=== PATIENT | female | born 1985 | race Caucasian/White ===

== ENCOUNTER 2018-10-10 19:05 | Emergency (ER) | payer OTHER ==
[~2018-10-10] VITALS: Ht 157.5 cm; Wt 50.8 kg
[2018-10-10 20:01] VITALS: BP 139/51
== END 2018-10-10 20:27 | disposition home or self-care (01) ==
LOC: ER 19:07
DX: J34.89 Other specified disorders of nose and nasal sinuses (principal); K21.9 Gastro-esophageal reflux disease without esophagitis
CPT/HCPCS: 99281; A4606; J7030; Z7502

== ENCOUNTER 2019-09-20 20:59 | Emergency (ER) | payer OTHER ==
[~2019-09-20] VITALS: Ht 157.5 cm; Wt 49.9 kg
[2019-09-20 20:59] VITALS: BP 119/71
== END 2019-09-20 21:34 | disposition home or self-care (01) ==
LOC: ER 20:59
DX: G89.18 Other acute postprocedural pain (principal); K21.9 Gastro-esophageal reflux disease without esophagitis; Z98.890 Other specified postprocedural states

== ENCOUNTER 2022-03-11 08:07 | Emergency (ER) | payer OTHER ==
[~2022-03-11] VITALS: Ht 157.5 cm; Wt 52.2 kg
[2022-03-11 08:21] VITALS: BP 103/57
--- NOTE | 2022-03-11 08:40 | NUR ---
Seen by DR. VALENCIA sporadha with pt about plan of care
--- NOTE | 2022-03-11 08:41 | NUR ---
RECEIVED PT 36 YRS FEMALE FROM HOME C/O NUBMMESS ON RT ARM AND PAIN ON LT SHOLDER NO WEEKNEESS WALKING WITH STADY GAIT
--- NOTE | 2022-03-11 08:45 | NUR ---
UA SENT TO LAB
--- NOTE | 2022-03-11 08:50 | NUR ---
BLOOD DROW BY LAB TACH
--- NOTE | 2022-03-11 08:57 | NUR ---
SIGNED WAIVER FORM. WITH IUD SINCE 2018.
[2022-03-11 08:59] LABS: BASOPHILS % (AUTO) 0.6 % (0.0-2.0); EOSINOPHILS % (AUTO) 4.9 % (0.0-6.0); HEMATOCRIT 37 % (33-45); HEMOGLOBIN 12.3 g/dL (11.5-14.8); LYMPHOCYTES # (AUTO) 1.3 K/uL (0.8-4.8); LYMPHOCYTES % (AUTO) 41.3 % (20.0-44.0); MEAN CORPUSCULAR HGB CONC 33 g/dl (31.0-36.0); MEAN CORPUSCULAR VOLUME 87 fL (82-100); MONOCYTES # (AUTO) 0.3 K/uL (0.1-1.30); MONOCYTES % (AUTO) 9.8 % (2.0-12.0); NEUTROPHILS # (AUTO) 1.4 K/uL (1.8-8.9); NEUTROPHILS % (AUTO) 43.4 % (43.0-81.0); PLATELET COUNT (AUTO) 185 K/uL (150-450); RED BLOOD CELL COUNT(AUTO) 4.26 MIL/uL (4.0-5.2); WHITE BLOOD COUNT (AUTO) 3.2 K/uL (4.3-11.0)
--- NOTE | 2022-03-11 09:00 | NUR ---
to CT scan of head
[2022-03-11 09:08] LABS: CALCIUM, SERUM 8.9 mg/dL (8.5-10.1); CREATININE 0.9 mg/dL (0.6-1.3); POTASSIUM 3.7 mmol/L (3.5-5.1)
[2022-03-11] MEDS ORDERED: IOHEXOL-350 100 ML VIAL IV ONE (09:10)
[2022-03-11] MEDS ORDERED: IV NS 0.9% 250 ML IV ONE (09:10)
[2022-03-11] MEDS ORDERED: CT SWABBABLE VALVE TRANS SET 1 EA INFUS.SET MC ONE (09:10)
--- NOTE | 2022-03-11 09:31 | NUR ---
WHEELED OUT VIA RNEY FOR CT SCAN
--- NOTE | 2022-03-11 09:43 | NUR ---
to CTA VIA [facility]
[2022-03-11] MEDS ORDERED: CYCL5TAB PO (10:23)
[2022-03-11] MEDS ORDERED: IBUP-1957 PO (10:23)
--- NOTE | 2022-03-11 10:38 | NUR ---
Patient discharged to home in stable condition. Written and verbal after care instructions given. Patient verbalizes understanding of instruction.
== END 2022-03-11 10:38 | disposition home or self-care (01) ==
LOC: ER 08:11
DX: M54.12 Radiculopathy, cervical region (principal); K21.9 Gastro-esophageal reflux disease without esophagitis; Z98.82 Breast implant status; Z79.899 Other long term (current) drug therapy
CPT/HCPCS: 36415; 70498; 72131; 80048; 84703; 85025; 99285; J7050; Q9967

== ENCOUNTER 2023-05-13 14:04 | Emergency (ER) | payer OTHER ==
[~2023-05-13] VITALS: Ht 157.5 cm; Wt 51.7 kg
[~2023-05-13 14:04] MED LIST: CYCL5TAB PO; IBUP-1957 PO
[2023-05-13] MEDS ORDERED: PANTOPRAZOLE 40 MG VIAL ONE (14:43)
[2023-05-13] MEDS ORDERED: ONDANSETRON HCL/PF 4 MG/2 ML VIAL ONE (14:43)
[2023-05-13] MEDS ORDERED: KETOROLAC TROMETHAMINE INJ 30 MG/ML VIAL ONE (14:44)
[2023-05-13 14:54] LABS: APPEARANCE,URINE CLEAR (CLEAR); BILIRUBIN,URINE NEGATIVE (NEGATIVE); BLOOD, URINE TRACE-INTA Ery/uL (NEGATIVE); COLOR,URINE YELLOW (YELLOW); KETONES,URINE NEGATIVE (NEGATIVE); LEUKOCYTE ESTERASE ,URINE NEGATIVE (NEGATIVE); NITRITE, URINE NEGATIVE (NEGATIVE); PROTEIN,URINE NEGATIVE (NEGATIVE); UGLUCOSE NEGATIVE (NEGATIVE); UROBILINOGEN,URINE 0.2 EU/dL (0.2)
[2023-05-13 15:00] LABS: BASOPHILS % (AUTO) 0.6 % (0.0-2.0); EOSINOPHILS # (AUTO) 0.2 K/uL (0.0-0.7); EOSINOPHILS % (AUTO) 2.5 % (0.0-6.0); HEMATOCRIT 39 % (33-45); HEMOGLOBIN 13.4 g/dL (11.5-14.8); LYMPHOCYTES # (AUTO) 2.1 K/uL (0.8-4.8); LYMPHOCYTES % (AUTO) 27.3 % (20.0-44.0); MEAN CORPUSCULAR HEMOGLOBIN 30 PG (26.0-33.0); MEAN CORPUSCULAR HGB CONC 34 g/dl (31.0-36.0); MEAN CORPUSCULAR VOLUME 87 fL (82-100); MONOCYTES # (AUTO) 0.4 K/uL (0.1-1.30); MONOCYTES % (AUTO) 5.6 % (2.0-12.0); NEUTROPHILS # (AUTO) 4.8 K/uL (1.8-8.9); PLATELET COUNT (AUTO) 264 K/uL (150-450); RED BLOOD CELL COUNT(AUTO) 4.54 MIL/uL (4.0-5.2); RED CELL DISTRIBUTION WIDTH 12.2 % (11.5-15.0); WHITE BLOOD COUNT (AUTO) 7.5 K/uL (4.3-11.0)
[2023-05-13] MEDS ORDERED: KETOROLAC TROMETHAMINE INJ 30 MG/ML VIAL IV ONE (15:00)
[2023-05-13] MEDS ORDERED: ONDANSETRON HCL/PF 4 MG/2 ML VIAL IVP ONE (15:00)
[2023-05-13] MEDS ORDERED: PANTOPRAZOLE 40 MG VIAL IV ONE (15:00)
[2023-05-13] MEDS ORDERED: IV NS 0.9% 1,000 ML BAG IV ONE (15:00)
[2023-05-13 15:04] LABS: PREGNANCY TEST URINE QUAL NEGATIVE (NEGATIVE)
[2023-05-13 15:06] LABS: ADD URINE CULTURE NO; BACTERIA,URINE None seen /HPF (None Seen); RBC,URINE 0-2 /HPF (0-2); SQUAMOUS EPITHELIAL CELL,UR 0-2 /HPF (None Seen); WBC,URINE NONE SEEN /HPF (0-3)
[2023-05-13 15:14] LABS: ALBUMIN 4.2 g/dL (3.4-5.0); BILIRUBIN,DIRECT 0.1 mg/dL (0.0-0.2); BILIRUBIN,TOTAL 0.4 mg/dL (0.2-1.0); CALCIUM, SERUM 8.9 mg/dL (8.5-10.1); CREATININE 0.9 mg/dL (0.6-1.3); POTASSIUM 3.3 mmol/L (3.5-5.1); TOTAL PROTEIN, SERUM 8.4 g/dL (6.4-8.2)
[2023-05-13] MEDS ORDERED: LACT10SO3 PO (16:05)
[2023-05-13 16:35] VITALS: BP 125/80; TEMP 98.1; O2SAT 100
== END 2023-05-13 16:35 | disposition home or self-care (01) ==
LOC: ER 14:13
DX: K59.00 Constipation, unspecified (principal); R10.13 Epigastric pain; Z79.899 Other long term (current) drug therapy
CPT/HCPCS: 99285; 74176; 96374; 96375; 96361; 85025; 80048; 80076; 84703; 81001; 36415; J1885; J2405; J7030; C9113

== ENCOUNTER 2023-06-08 12:00 | Emergency (ER) | payer OTHER ==
[~2023-06-08] VITALS: Ht 157.5 cm; Wt 51.7 kg
[~2023-06-08 12:00] MED LIST changes: +LACT10SO3 PO
[2023-06-08 13:05] LABS: BASOPHILS % (AUTO) 0.1 % (0.0-2.0); EOSINOPHILS % (AUTO) 0.3 % (0.0-6.0); HEMATOCRIT 36 % (33-45); HEMOGLOBIN 12.2 g/dL (11.5-14.8); LYMPHOCYTES # (AUTO) 0.7 K/uL (0.8-4.8); LYMPHOCYTES % (AUTO) 7.4 % (20.0-44.0); MEAN CORPUSCULAR HEMOGLOBIN 30 PG (26.0-33.0); MEAN CORPUSCULAR HGB CONC 34 g/dl (31.0-36.0); MEAN CORPUSCULAR VOLUME 87 fL (82-100); MONOCYTES # (AUTO) 0.6 K/uL (0.1-1.30); NEUTROPHILS # (AUTO) 8.4 K/uL (1.8-8.9); NEUTROPHILS % (AUTO) 86.2 % (43.0-81.0); PLATELET COUNT (AUTO) 185 K/uL (150-450); RED BLOOD CELL COUNT(AUTO) 4.11 MIL/uL (4.0-5.2); RED CELL DISTRIBUTION WIDTH 12.4 % (11.5-15.0); WHITE BLOOD COUNT (AUTO) 9.8 K/uL (4.3-11.0)
[2023-06-08 16:29] VITALS: BP 66/106; TEMP 98.8; O2SAT 100
== END 2023-06-08 16:29 | disposition home or self-care (01) ==
LOC: ER 12:05
DX: R50.9 Fever, unspecified (principal); Z79.899 Other long term (current) drug therapy; Z20.822 Contact with and (suspected) exposure to COVID-19
CPT/HCPCS: 99283; 87426; 87804 ×2; 85025; 87207; 36415; C9803

== ENCOUNTER 2023-07-17 18:24 | Emergency (ER) | payer OTHER ==
[~2023-07-17] VITALS: Ht 157.5 cm; Wt 51.3 kg
[2023-07-17 18:38] VITALS: BP 131/87; TEMP 98.4; O2SAT 100
[2023-07-17] MEDS ORDERED: KETO10TA2 PO (20:44)
== END 2023-07-17 20:52 | disposition home or self-care (01) ==
LOC: ER 18:27
DX: S02.2XXA Fracture of nasal bones, initial encounter for closed fracture (principal); Z79.899 Other long term (current) drug therapy; Y93.72 Activity, wrestling; Y93.89 Activity, other specified; Y92.89 Other specified places as the place of occurrence of the external cause; Y99.8 Other external cause status
CPT/HCPCS: 70486-TC

== ENCOUNTER 2025-05-25 08:17 | Emergency (ER) | payer SELFPAY ==
[~2025-05-25] VITALS: Ht 157.5 cm; Wt 52.2 kg
[~2025-05-25 08:17] MED LIST changes: +KETO10TA2 PO
[2025-05-25 08:39] VITALS: BP 122/83; TEMP 98.6; O2SAT 97
== END 2025-05-25 08:40 ==
LOC: ER 08:17
DX: F41.1 Generalized anxiety disorder (principal); Z79.1 Long term (current) use of non-steroidal anti-inflammatories (NSAID); Z79.899 Other long term (current) drug therapy